=== PATIENT | female | born 1990 | race Two or more races ===

== ENCOUNTER 2018-06-30 08:51 | Outpatient (CLI) | payer OTHER ==
[~2018-06-30] VITALS: Ht 152.4 cm; Wt 72.6 kg
== END 2018-06-30 09:10 | disposition home or self-care (01) ==
LOC: OFIC 805 08:51
DX: H81.11 Benign paroxysmal vertigo, right ear (principal); H90.42 Sensorineural hearing loss, unilateral, left ear, with unrestricted hearing on the contralateral side

== ENCOUNTER 2018-07-07 08:38 | Outpatient (CLI) | payer OTHER ==
[~2018-07-07] VITALS: Ht 152.4 cm; Wt 72.6 kg
== END 2018-07-07 09:00 | disposition home or self-care (01) ==
LOC: OFIC 805 08:38
DX: R42 Dizziness and giddiness (principal)

== ENCOUNTER 2018-11-10 10:55 | Outpatient (CLI) | payer OTHER | END 2018-11-10 11:08 | disposition home or self-care (01) | LOC: RAD 501 10:55 | DX: M54.5 Low back pain (principal); M54.6 Pain in thoracic spine ==

== ENCOUNTER 2020-10-03 11:45 | Emergency (ER) | payer OTHER ==
[~2020-10-03] VITALS: Ht 167.6 cm; Wt 67.1 kg
[2020-10-03] MEDS ORDERED: DEPAKOTE ER500 MG PO (11:58)
[2020-10-03] MEDS ORDERED: TOPAMAX50 MG PO (11:59)
[2020-10-03] MEDS ORDERED: SPIRONOLACTONE25 MG PO (12:00)
[2020-10-03] MEDS ORDERED: ATIVAN1 M1 PO (12:01)
[2020-10-03] MEDS ORDERED: NORFLEX100MG PO (16:21)
== END 2020-10-03 16:49 | disposition home or self-care (01) ==
LOC: ER 11:45
DX: R53.81 Other malaise (principal); R51.9 Headache, unspecified; Z03.818 Encounter for observation for suspected exposure to other biological agents ruled out

== ENCOUNTER 2020-10-07 11:25 | Outpatient (CLI) | payer OTHER ==
[~2020-10-07 11:25] MED LIST: ATIVAN1 M1 PO; DEPAKOTE ER500 MG PO; NORFLEX100MG PO; SPIRONOLACTONE25 MG PO; TOPAMAX50 MG PO
== END 2020-10-07 11:36 | disposition home or self-care (01) ==
LOC: MRI 11:25
PROVIDERS: ATTEND General Practice
DX: G93.89 Other specified disorders of brain (principal); R42 Dizziness and giddiness
CPT/HCPCS: 70551